=== PATIENT | female | born 1970 | race Caucasian/White ===

== ENCOUNTER 2016-08-09 17:57 | Emergency (ER) | payer SELFPAY ==
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
== END 2016-08-09 19:35 | disposition home or self-care (01) ==
LOC: ER 17:57
PROC: 0PSVXZZ Reposition Left Finger Phalanx, External Approach (ICD-10-PCS; principal; 2016-08-09)
DX: S62.611A Displaced fracture of proximal phalanx of left index finger, initial encounter for closed fracture (principal); Z88.5 Allergy status to narcotic agent; V43.92XA Unspecified car occupant injured in collision with other type car in traffic accident, initial encounter